=== PATIENT | male | born 1995 | race African-American/Black ===

== ENCOUNTER 2017-03-31 09:48 | Emergency (ER) | payer SELFPAY ==
--- NOTE | 2017-03-31 10:31 | ED ---
Throat Pain/Nasal Congestion - HPI Summary HPI Summary: 21 male presents to ED with complaints of dental pain/infection that has been ongoing for the past month. Patient has been on amoxicillin however feels the infection has not improved. Has not been seen by a dentist has only called them on phone. Patient has been trying to get in to [facility] for an appointment to have tooth pulled. Denies discharge, swelling, difficulty breathing, difficulty swallowing. Patient denies fever/chills. Is able to eat and drink although is painful with chewing. Has been taking excedrin which does relieve his pain. No other complaints or new symptoms. No PMHx. - History of Current Complaint Chief Complaint: EDDentalPain Hx Obtained From: Patient Onset/Duration: Sudden Onset, Lasting Weeks, Still Present Severity: Moderate Associated Signs And Symptoms: Positive: Negative Cough: None - Allergies/Home Medications Allergies/Adverse Reactions: Allergies Allergy/AdvReac Type Severity Reaction Status Date / Time MS Codeine Allergy Hives Verified 03/31/17 10:08 PMH/Surg Hx/FS Hx/Imm Hx Endocrine/Hematology History: Denies: Hx Anticoagulant Therapy, Hx Diabetes Cardiovascular History: Denies: Hx Hypertension Respiratory History: Denies: Hx Asthma - Surgical History Surgery Procedure, Year, and Place: n/a - Immunization History Date of Tetanus Vaccine: unknown Immunizations Up to Date: Yes Infectious Disease History: No Infectious Disease History: Denies: Traveled Outside the [place] in Last 30 Days - Family History Known Family History: Positive: None - Social History Alcohol Use: Rare Substance Use Type: Reports: Marijuana Smoking Status (MU): Heavy Every Day Tobacco Smoker Review of Systems Constitutional: Negative Positive: Dental Pain Cardiovascular: Negative Respiratory: Negative Gastrointestinal: Negative All Other Systems Reviewed And Are Negative: Yes Physical Exam Triage Information Reviewed: Yes Vital Signs On Initial Exam: Initial Vitals Temp Pulse Resp BP Pulse Ox 98.3 F 59 16 119/70 98 03/31/17 10:03 03/31/17 10:03 03/31/17 10:03 03/31/17 10:03 03/31/17 10:03 Vital Signs Reviewed: Yes Appearance: Positive: Well-Appearing, No Pain Distress, Well-Nourished Skin: Positive: Warm, Skin Color Reflects Adequate Perfusion, Dry. Negative: Cold, Numb, Cyanosis @, Pale, Erythema @ Head/Face: Positive: Normal Head/Face Inspection Eyes: Positive: EOMI, Conjunctiva Clear ENT: Positive: Normal ENT inspection, Hearing grossly normal, Pharynx normal, TMs normal. Negative: Pharyngeal erythema, Nasal congestion, Nasal drainage Dental: Positive: Gross Decay/Caries @, Dental Fracture @ - bottom right #2 and upper left #14 fracture, erythema no abscess. Negative: Abscess @, Cellulitis @ , Cervical Lymphadenopathy Neck: Positive: Supple, Nontender, No Lymphadenopathy Respiratory/Lung Sounds: Positive: Clear to Auscultation, Breath Sounds Present. Negative: Decreased Breath Sounds, Rales, Rhonchi, Wheezes Cardiovascular: Positive: Normal, RRR, Pulses are Symmetrical in both Upper and Lower Extremities. Negative: Murmur, Rub Musculoskeletal: Positive: Normal, Strength/ROM Intact Neurological: Positive: Normal, Sensory/Motor Intact, Alert, Oriented to Person Place, Time Diagnostics - Vital Signs Vital Signs Temp Pulse Resp BP Pulse Ox 03/31/17 10:03 98.3 F 59 16 119/70 98 - Laboratory Lab Statement: Any lab studies that have been ordered have been reviewed, and results considered in the medical decision making process. EENT Course/Dx - Course Course Of Treatment: appears to be suffering from dental infection/dental fracture. pain is controlled. will give clindamycin since last was on amoxcillin. no concern for other etiology at this time. no abscess apreciated on exam. continue ibuprofen or excedrin for pain. follow up with oral surgery. probiotics, fluids, rest, salt water gargles, oragel. aware of worsening signs and symptoms to watch out for at this time. - Differential Diagnoses Differential Diagnoses: Dental Abscess, Dental Caries, Fractured Tooth - Diagnoses Provider Diagnoses: Pain, dental, Dental infection, Fractured tooth Discharge - Discharge Plan Condition: Good Disposition: HOME Prescriptions: Clindamycin Cap(NF) [Clindamycin Cap 300 mg Cap(NF)] 300 mg PO TID #30 cap Ibuprofen TAB* [Motrin TAB* 600 MG] 600 mg PO Q8H PRN #25 tab PRN Reason: Pain Patient Education Materials: Dental Abscess (ED), Acute Dental Trauma (ED), Toothache (ED) Referrals: [facility] [Outside] Jos Rodriguez MD [Doctor of Dental Medicine] - Alonso Boss MD [Doctor of Dental Medicine] - Additional Instructions: Take prescribed medication to help with infection. Recommend taking probiotics daily and eating uzbek yogurt to replace normal GI ruthy, which is very important to reduce secondary infection. Continue excedrin or take prescribed ibuprofen to help with pain, inflammation. Increase fluid intake. Good oral hygiene. Topical orajel to apply for pain Salt water gargles. Follow up with oral surgeon to have teeth removed. Any new or worsening symptoms (swelling, abscess, drainage, difficulty swallowing/breathing, or fever/chills) please seek medical attention promptly.
[2017-03-31 10:59] VITALS: BP 109/66
== END 2017-03-31 10:58 | disposition home or self-care (01) ==
LOC: ED 09:48
DX: K03.81 Cracked tooth (principal); K04.7 Periapical abscess without sinus; K08.89 Other specified disorders of teeth and supporting structures; K08.9 Disorder of teeth and supporting structures, unspecified; F17.210 Nicotine dependence, cigarettes, uncomplicated
CPT/HCPCS: 99282